=== PATIENT | female | born 1965 | race Native Hawaiian/Other Pacific Islander ===

== ENCOUNTER → 2017-10-28 | Outpatient (CLI) | payer MEDICARE, OTHER ==
[2017-10-28 17:26] LABS: Basophils # (A) 0.1 k/uL (0-0.2); Basophils % (A) 1 %; Eosinophils # (A) 0.2 k/uL (0-0.7); Eosinophils % (A) 2 %; HCT 32.6 % (34.0-46.0); HGB 10.4 gm/dL (11.4-16.0); Lymphocytes # (A) 3.1 k/uL (1.0-4.8); Lymphocytes % (A) 39 %; MCH 30.6 pg (25.0-35.0); MCV 95.7 fL (80.0-100.0); Mean Platelet Volume 8.5; Monocytes # (A) 0.4 k/uL (0-1.0); Monocytes % (A) 5 %; Neutrophils % (A) 50 %; Platelet Count 235 k/uL (150-450); RBC 3.41 m/uL (3.80-5.40); RDW 15.4 % (11.5-15.5); WBC 7.9 k/uL (3.8-10.6)
[2017-10-28 17:40] LABS: ALT 21 U/L (9-52); AST 21 U/L (14-36); C Reactive Protein 17.1 mg/L (<10.0)
[2017-10-28 20:59] LABS: Erythrocyte Sedimentation Rate 21 mm/hr (0-20)
== END | disposition home or self-care (01) ==
LOC: LABWHC1 16:58
PROVIDERS: ATTEND Internal Medicine Rheumatology
DX: M06.9 Rheumatoid arthritis, unspecified (principal)
CPT/HCPCS: 36415; 82565; 84450; 84460; 85025; 85652; 86140

== ENCOUNTER → 2018-02-09 | Outpatient (CLI) | payer MEDICARE, OTHER ==
[2018-02-09 17:08] LABS: Basophils # (A) 0.1 k/uL (0-0.2); Basophils % (A) 1 %; Eosinophils # (A) 0.1 k/uL (0-0.7); Eosinophils % (A) 1 %; HCT 31.1 % (34.0-46.0); HGB 10.3 gm/dL (11.4-16.0); Lymphocytes # (A) 3.5 k/uL (1.0-4.8); Lymphocytes % (A) 37 %; MCH 31.4 pg (25.0-35.0); MCHC 33.2 g/dL (31.0-37.0); MCV 94.6 fL (80.0-100.0); Monocytes # (A) 0.3 k/uL (0-1.0); Monocytes % (A) 4 %; Neutrophils # (A) 5.2 k/uL (1.3-7.7); Neutrophils % (A) 55 %; Platelet Count 317 k/uL (150-450); RBC 3.28 m/uL (3.80-5.40); RDW 13.8 % (11.5-15.5); WBC 9.5 k/uL (3.8-10.6)
[2018-02-09 17:13] LABS: ALT <6 U/L (9-52); AST 19 U/L (14-36); C Reactive Protein 7.1 mg/L (<10.0)
[2018-02-09 18:36] LABS: Erythrocyte Sedimentation Rate 15 mm/hr (0-20)
== END | disposition home or self-care (01) ==
LOC: LABWHC1 16:04
PROVIDERS: ATTEND Internal Medicine Rheumatology
DX: M06.9 Rheumatoid arthritis, unspecified (principal)
CPT/HCPCS: 36415; 82565; 84450; 84460; 85025; 85652; 86140

== ENCOUNTER 2018-06-06 10:51 | Emergency (ER) | payer MEDICARE, OTHER ==
[2018-06-06] MEDS ORDERED: methylPREDNISolone SOD SUCCI 125 MG/2 ML VIAL IV STA (11:02)
[2018-06-06] MEDS ORDERED: KETOROLAC 30 MG/ML 1 ML VIAL IVP STA (11:02)
[2018-06-06] MEDS ORDERED: FAMOTIDINE 20 MG/2 ML VIAL IV STA (11:02)
--- NOTE | 2018-06-06 11:05 | ED ---
General Adult HPI - General Chief complaint: Allergic Reaction Stated complaint: Bee sting-allergic Time Seen by Provider: 06/06/18 10:54 Source: patient, EMS, RN notes reviewed Mode of arrival: EMS Limitations: no limitations - History of Present Illness Initial comments: Patient 53-year-old female presented to the emergency room today by EMS, the chief complaint of bee stings. Patient states that she was working with some honeybees when she was stung multiple times. She states that she was stung to the face and the upper lip. States that she was also stung to the right and left arms. Patient admits to pain locally around the sting areas. Patient states she is not ALLERGIC to bee stings but is having increased headache. Doesn't some swelling locally around the stings. Denies any difficulty breathing or swallowing. Patient denies any other complaints. Patient denies any recent fever, chills, shortness of breath, chest pain, back pain, abdominal pain, nausea or vomiting, constipation or diarrhea, visual changes, or any other complaints. - Related Data Home Medications Medication Instructions Recorded Confirmed Hydrocodone/Acetaminophen [[place] 1 each PO Q6H PRN 02/15/14 06/06/18 10-325] Ergocalciferol [Vitamin D2] 50,000 unit PO Q7D 06/06/18 06/06/18 Leflunomide 20 mg PO DAILY 06/06/18 06/06/18 Tofacitinib Citrate [Xeljanz Xr] 11 mg PO DAILY 06/06/18 06/06/18 Previous Rx's Medication Instructions Recorded Ibuprofen [Motrin] 800 mg PO Q8HR PRN #20 tab 02/15/14 diphenhydrAMINE [Benadryl] 1 - 2 tab PO Q6HR PRN #30 capsule 06/06/18 predniSONE 50 mg PO DAILY #5 tab 06/06/18 Allergies Allergy/AdvReac Type Severity Reaction Status Date / Time No Known Allergies Allergy Verified 06/06/18 11:17 Review of Systems ROS Statement: Those systems with pertinent positive or pertinent negative responses have been documented in the HPI. ROS Other: All systems not noted in ROS Statement are negative. Past Medical History Past Medical History: Fibromyalgia, Rheumatoid Arthritis (RA) History of Any Multi-Drug Resistant Organisms: None Reported Past Surgical History: Joint Replacement, Orthopedic Surgery Past Psychological History: Anxiety, Depression Smoking Status: Never smoker Past Alcohol Use History: Occasional Past Drug Use History: Marijuana General Exam - General Exam Comments Initial Comments: General: The patient is awake and alert, in no distress, and does not appear acutely ill. Eye: Pupils are equal, round and reactive to light. Extra-ocular movements are intact. No nystagmus. There is normal conjunctiva bilaterally. No signs of icterus. Ears, nose, mouth and throat: There are moist mucous membranes and no oral lesions. No angioedema. No tongue swelling. No difficulty swallowing. Neck: The neck is supple, there is no tenderness or JVD. Cardiovascular: There is a regular rate and rhythm. No murmur, rub or gallop is appreciated. Respiratory: Lungs are clear to auscultation, respirations are non-labored, breath sounds are equal. No wheezes, stridor, rales, or rhonchi. Musculoskeletal: Normal ROM, no tenderness. Sensation intact. Pulses equal bilaterally 2+. Neurological: A&O x 3. CN II-XII intact, There are no obvious motor or sensory deficits. Coordination appears grossly intact. Speech is normal. Skin: Skin is warm and dry and no rashes. Mild swelling to locally around sting sites to the upper arm Psychiatric: Cooperative, appropriate mood & affect, normal judgment. Limitations: no limitations Course Vital Signs 06/06/18 10:55 Temperature 98.1 F Pulse Rate 107 H Respiratory 24 Rate Blood Pressure 142/96 O2 Sat by Pulse 97 Oximetry Medical Decision Making - Medical Decision Making Patient has been observed here in the emergency room. She's had no increasing reaction. She is feeling better. Patient was stung multiple times to the head and face area. Patient has no ALLERGY to bee stings that she knows of. There is no angioedema no difficulty breathing or swallowing. Patient will be continued on steroids and Benadryl. Signs and symptoms of concern and reason to return here to the emergency room discussed in detail with patient and friend at bedside. Patient states understanding and is in agreement at this time. Disposition Clinical Impression: Bee sting Disposition: HOME SELF-CARE Condition: Good Instructions: Insect Bite or Sting (ED) Additional Instructions: Please use medication as discussed. Please follow-up with family doctor in the next 2 days of symptoms have not improved. Please return to emergency room if the symptoms increase or worsen or for any other concerns. Prescriptions: diphenhydrAMINE [Benadryl] 1 - 2 tab PO Q6HR PRN #30 capsule PRN Reason: Allergic Reaction predniSONE 50 mg PO DAILY #5 tab Is patient prescribed a controlled substance at d/c from ED?: No Referrals: Jose Flores DO [Primary Care Provider] - 1-2 days Time of Disposition: 12:04
[2018-06-06] MEDS ORDERED: HYDROcodone/APAP 10-325MG 1 EACH TAB PO ONE (11:11)
[2018-06-06 12:06] VITALS: BP 113/77; PULSE 72; RESP 20; TEMP 99
== END 2018-06-06 12:33 | disposition home or self-care (01) ==
LOC: EC 10:51
DX: T63.441A Toxic effect of venom of bees, accidental (unintentional), initial encounter (principal); M06.9 Rheumatoid arthritis, unspecified; Z79.899 Other long term (current) drug therapy
CPT/HCPCS: 99283; 96374; 96375; J2930

== ENCOUNTER 2019-02-02 22:15 | Emergency (ER) | payer MEDICARE, OTHER ==
[2019-02-02 22:22] VITALS: RESP 18; TEMP 98.1
--- NOTE | 2019-02-02 22:52 | ED ---
General Adult HPI - General Chief complaint: Extremity Injury, Lower Stated complaint: Knee pain Time Seen by Provider: 02/02/19 22:33 Source: patient Mode of arrival: ambulatory Limitations: no limitations - History of Present Illness Initial comments: Mara is a pleasant 53-year-old female who presents to the emergency department today for evaluation of right-sided knee pain. Patient has very advanced rheumatoid arthritis and suffers from polyarthralgias chronically. Patient reports that last week she was vacuuming when she tripped over the cord. Patient was able to stand and has been ambulatory since that time but has been experiencing worsening pain in her right knee and charley horse-like sensations down her legs. Patient reports that she has been scheduled to have a knee replacement however due to being underweight she's not been a candidate for surgery. She is scheduled to have a bone density scan in the next couple of weeks and then follow up with Dr. Mel Hayes for consideration of the knee replacement. - Related Data Home Medications Medication Instructions Recorded Confirmed Hydrocodone/Acetaminophen [[place] 1 tab PO Q4H PRN 02/15/14 02/02/19 10-325] Ergocalciferol [Vitamin D2] 50,000 unit PO FR 06/06/18 02/02/19 Leflunomide 20 mg PO DAILY 06/06/18 02/02/19 Tofacitinib Citrate [Xeljanz Xr] 11 mg PO DAILY 06/06/18 02/02/19 Previous Rx's Medication Instructions Recorded Ibuprofen [Motrin] 800 mg PO Q8HR PRN #20 tab 02/15/14 predniSONE [Deltasone] 40 mg PO DAILY 5 Days #10 tablet 02/02/19 Allergies Allergy/AdvReac Type Severity Reaction Status Date / Time No Known Allergies Allergy Verified 02/02/19 22:28 Review of Systems ROS Statement: Those systems with pertinent positive or pertinent negative responses have been documented in the HPI. ROS Other: All systems not noted in ROS Statement are negative. Past Medical History Past Medical History: Fibromyalgia, Rheumatoid Arthritis (RA) History of Any Multi-Drug Resistant Organisms: None Reported Past Surgical History: Joint Replacement, Orthopedic Surgery Past Psychological History: Anxiety, Depression Smoking Status: Never smoker Past Alcohol Use History: Occasional Past Drug Use History: Marijuana General Exam - General Exam Comments Initial Comments: Physical Exam GENERAL: Chronically ill-appearing female, appears much older than stated age HENT: Normocephalic, Atraumatic. EYES: PERRL, EOMI PULMONARY: Unlabored respirations. No audible rales rhonchi or wheezing was noted. CARDIOVASCULAR: There is a regular rate and rhythm without any murmurs gallops or rubs. ABDOMEN: Soft and nontender with normal bowel sounds. SKIN: Skin is clear with no lesions or rashes and otherwise unremarkable. : Deferred NEUROLOGIC: Patient is alert and oriented x3. Moving all extremities spontaneously MUSCULOSKELETAL: Joint changes of hands and knees consistent with rheumatoid arthritis clicking in the right knee effusion No lower extremity edema PSYCHIATRIC: Normal psychiatric evaluation. Limitations: no limitations Limitations: no limitations Course Vital Signs 02/02/19 22:18 Temperature 98.1 F Pulse Rate 68 Respiratory 18 Rate Blood Pressure 108/70 O2 Sat by Pulse 98 Oximetry Medical Decision Making - Medical Decision Making The patient was seen and evaluated, history obtained from patient and daughter patient with rheumatoid arthritis with worsening pain in her right knee Patient with glenn horse like pain, concern for electrolyte abnormality as the patient has poor PO intake Labs with chronic anemia No electrolyte abnormality noted Xray with chronic changes, no acute injury Patient with minimal improvement after morphine and toradol, requesting steroids as that have helped in the past PO prednisone and prescription for 5 days of PO prednisone given Return parameters discussed Patient discharged home in stable condition - Lab Data Result diagrams: 02/02/19 23:00 02/02/19 23:00 Lab Results 02/02/19 02/02/19 Range/Units 23:00 23:00 WBC 7.6 (3.8-10.6) k/uL RBC 3.25 L (3.80-5.40) m/uL Hgb 10.1 L (11.4-16.0) gm/dL Hct 30.9 L (34.0-46.0) % MCV 95.0 (80.0-100.0) fL MCH 31.1 (25.0-35.0) pg MCHC 32.7 (31.0-37.0) g/dL RDW 13.5 (11.5-15.5) % Plt Count 476 H (150-450) k/uL Neutrophils % 40 % Lymphocytes % 49 % Monocytes % 3 % Eosinophils % 3 % Basophils % 1 % Neutrophils # 3.1 (1.3-7.7) k/uL Lymphocytes # 3.7 (1.0-4.8) k/uL Monocytes # 0.2 (0-1.0) k/uL Eosinophils # 0.2 (0-0.7) k/uL Basophils # 0.1 (0-0.2) k/uL Differential Comment Manual Slide Review Performed Sodium 138 (137-145) mmol/L Potassium 4.3 (3.5-5.1) mmol/L Chloride 108 H (98-107) mmol/L Carbon Dioxide 20 L (22-30) mmol/L Anion Gap 10 mmol/L BUN 9 (7-17) mg/dL Creatinine 0.52 (0.52-1.04) mg/dL Est GFR (CKD-EPI)AfAm >90 (>60 ml/min/1.73 sqM) Est GFR (CKD-EPI)NonAf >90 (>60 ml/min/1.73 sqM) Glucose 88 (74-99) mg/dL Calcium 10.1 (8.4-10.2) mg/dL Magnesium 1.9 (1.6-2.3) mg/dL Total Bilirubin 0.2 (0.2-1.3) mg/dL AST 21 (14-36) U/L ALT 17 (9-52) U/L Alkaline Phosphatase 87 (38-126) U/L Creatine Kinase 68 (30-135) U/L Total Protein 7.8 (6.3-8.2) g/dL Albumin 4.5 (3.5-5.0) g/dL Disposition Clinical Impression: Arthritis Disposition: HOME SELF-CARE Instructions (If sedation given, give patient instructions): Osteoarthritis (DC) Prescriptions: predniSONE [Deltasone] 40 mg PO DAILY 5 Days #10 tablet Is patient prescribed a controlled substance at d/c from ED?: No Referrals: Jose Flores DO [Primary Care Provider] - 1-2 days
[2019-02-02] MEDS ORDERED: MORPHINE SULFATE 4 MG/ML SYRINGE IVP STA (22:53)
[2019-02-02] MEDS ORDERED: SODIUM CHLORIDE 0.9% 1,000 ML IV ONE (22:53)
[2019-02-02] MEDS ORDERED: KETOROLAC 30 MG/ML 1 ML VIAL IVP ONE (22:53)
[2019-02-02 23:19] LABS: Basophils # (A) 0.1 k/uL (0-0.2); Basophils % (A) 1 %; Eosinophils # (A) 0.2 k/uL (0-0.7); Eosinophils % (A) 3 %; HCT 30.9 % (34.0-46.0); HGB 10.1 gm/dL (11.4-16.0); Lymphocytes # (A) 3.7 k/uL (1.0-4.8); Lymphocytes % (A) 49 %; MCH 31.1 pg (25.0-35.0); MCHC 32.7 g/dL (31.0-37.0); Mean Platelet Volume 7.4; Monocytes # (A) 0.2 k/uL (0-1.0); Monocytes % (A) 3 %; Neutrophils # (A) 3.1 k/uL (1.3-7.7); Neutrophils % (A) 40 %; Platelet Count 476 k/uL (150-450); RBC 3.25 m/uL (3.80-5.40); RDW 13.5 % (11.5-15.5); WBC 7.6 k/uL (3.8-10.6)
--- NOTE | 2019-02-02 23:25 | XR ---
History: ITS.REASON XR Reason: Pain, fall hx Rheumatoid Exam: XR RIGHT KNEE 2 views Comparison: None available FINDINGS: No evidence of acute fracture or dislocation. Moderate joint effusion. Osteoarthrosis with lateral greater than medial appearing compartment narrowing and lateral compartment sclerosis and marginal osteophyte formation. Patellofemoral compartment joint space narrowing. Appearance of lateral knee soft tissue swelling suggested. IMPRESSION: No evidence of acute fracture or dislocation. Moderate joint effusion. Osteoarthrosis with lateral greater than medial appearing compartment narrowing and lateral compartment sclerosis and marginal osteophyte formation. Patellofemoral compartment joint space narrowing. Appearance of lateral knee soft tissue swelling suggested.
[2019-02-02 23:30] LABS: ALT 17 U/L (9-52); AST 21 U/L (14-36); Albumin 4.5 g/dL (3.5-5.0); Alkaline Phosphatase 87 U/L (38-126); Anion Gap 10 mmol/L; Blood Urea Nitrogen 9 mg/dL (7-17); Calcium 10.1 mg/dL (8.4-10.2); Carbon Dioxide 20 mmol/L (22-30); Chloride 108 mmol/L (98-107); Creatine Kinase 68 U/L (30-135); Glucose 88 mg/dL (74-99); Magnesium 1.9 mg/dL (1.6-2.3); Potassium 4.3 mmol/L (3.5-5.1); Sodium 138 mmol/L (137-145); Total Bilirubin 0.2 mg/dL (0.2-1.3); Total Protein 7.8 g/dL (6.3-8.2)
[2019-02-02] MEDS ORDERED: predniSONE 20 MG TAB PO STA (23:52)
[2019-02-03 00:22] VITALS: BP 126/75; PULSE 88
== END 2019-02-03 00:21 | disposition home or self-care (01) ==
LOC: EC 22:15
DX: M06.9 Rheumatoid arthritis, unspecified (principal); D64.9 Anemia, unspecified; Z96.89 Presence of other specified functional implants; Z79.899 Other long term (current) drug therapy; W22.8XXA Striking against or struck by other objects, initial encounter; Y93.E3 Activity, vacuuming
CPT/HCPCS: 36415; 80053; 82550; 83735; 85025; 73560; 99284; 96374; 96375; 96361; J2270; J1885; J7512

== ENCOUNTER → 2019-03-07 | Outpatient (CLI) | payer MEDICARE, OTHER ==
[2019-03-07 16:45] LABS: Basophils # (A) 0.1 k/uL (0-0.2); Basophils % (A) 1 %; Eosinophils # (A) 0.2 k/uL (0-0.7); Eosinophils % (A) 2 %; HGB 10.6 gm/dL (11.4-16.0); Lymphocytes # (A) 2.4 k/uL (1.0-4.8); Lymphocytes % (A) 26 %; MCH 30.1 pg (25.0-35.0); MCHC 32.1 g/dL (31.0-37.0); MCV 93.6 fL (80.0-100.0); Mean Platelet Volume 7.6; Monocytes # (A) 0.5 k/uL (0-1.0); Monocytes % (A) 6 %; Neutrophils # (A) 5.8 k/uL (1.3-7.7); Neutrophils % (A) 63 %; Platelet Count 520 k/uL (150-450); RBC 3.52 m/uL (3.80-5.40); RDW 14.4 % (11.5-15.5); WBC 9.2 k/uL (3.8-10.6)
[2019-03-07 20:51] LABS: Erythrocyte Sedimentation Rate 58 mm/hr (0-20)
[2019-03-07 23:10] LABS: C Reactive Protein 4.4 mg/dL (0.0-0.8)
== END | disposition home or self-care (01) ==
LOC: LABWHC1 15:11
PROVIDERS: ATTEND Internal Medicine Rheumatology
DX: M06.9 Rheumatoid arthritis, unspecified (principal)
CPT/HCPCS: 36415; 82565; 84450; 84460; 85025; 85652; 86140

== ENCOUNTER → 2019-07-11 | Outpatient (CLI) | payer MEDICARE, OTHER | END | disposition home or self-care (01) | LOC: LABPAT 13:52 | PROVIDERS: ATTEND Orthopaedic Surgery | DX: Z01.812 Encounter for preprocedural laboratory examination (principal) | CPT/HCPCS: 87070 ==

== ENCOUNTER 2019-07-12 15:46 | Emergency (ER) | payer MEDICARE, OTHER ==
[2019-07-12 16:04] VITALS: TEMP 98.5
[2019-07-12] MEDS ORDERED: MORPHINE SULFATE 4 MG/ML SYRINGE IV STA ×2 (16:44→18:25)
[2019-07-12] MEDS ORDERED: SODIUM CHLORIDE 0.9% 500 ML 500 ML IV STA (16:44)
[2019-07-12 17:28] LABS: Partial Thromboplastin Time 25.5 sec (22.0-30.0); Prothrombin Time 10.3 sec (9.0-12.0)
--- NOTE | 2019-07-12 17:28 | XR ---
EXAMINATION TYPE: XR chest 2V DATE OF EXAM: 07/12/2019 COMPARISON: NONE HISTORY: Chest pain TECHNIQUE: Frontal and lateral views of the chest are obtained. FINDINGS: Heart and mediastinum are normal. Lungs are clear. Diaphragm is normal. There are chest le ads. Bony thorax is intact. IMPRESSION: No cardiopulmonary disease. Moderate arthritic change noted in the shoulder joints.
[2019-07-12 17:30] LABS: ALT 12 U/L (9-52); AST 20 U/L (14-36); African American GFR (CKD) >90 (>60 ml/min/1.73 sqM); Albumin 4.2 g/dL (3.5-5.0); Alkaline Phosphatase 101 U/L (38-126); Anion Gap 12 mmol/L; Blood Urea Nitrogen 9 mg/dL (7-17); Calcium 10.2 mg/dL (8.4-10.2); Carbon Dioxide 23 mmol/L (22-30); Chloride 107 mmol/L (98-107); Glucose 107 mg/dL (74-99); Magnesium 1.7 mg/dL (1.6-2.3); Potassium 3.9 mmol/L (3.5-5.1); Sodium 142 mmol/L (137-145); Total Bilirubin 0.4 mg/dL (0.2-1.3)
[2019-07-12 17:34] LABS: D-Dimer 4.25 mg/L FEU (<0.60)
[2019-07-12 17:41] LABS: Basophils # (A) 0.1 k/uL (0-0.2); Basophils % (A) 1 %; Eosinophils # (A) 0.2 k/uL (0-0.7); Eosinophils % (A) 2 %; HCT 33.8 % (34.0-46.0); Lymphocytes # (A) 1.6 k/uL (1.0-4.8); Lymphocytes % (A) 14 %; MCH 30.8 pg (25.0-35.0); MCHC 32.6 g/dL (31.0-37.0); MCV 94.6 fL (80.0-100.0); Mean Platelet Volume 6.1; Monocytes # (A) 0.6 k/uL (0-1.0); Monocytes % (A) 6 %; Neutrophils # (A) 8.6 k/uL (1.3-7.7); Neutrophils % (A) 75 %; Platelet Count 627 k/uL (150-450); RBC 3.57 m/uL (3.80-5.40); RDW 13.5 % (11.5-15.5); WBC 11.4 k/uL (3.8-10.6)
--- NOTE | 2019-07-12 18:26 | ED ---
General Adult HPI - General Chief complaint: Extremity Problem,Nontraumatic Stated complaint: knee pain Time Seen by Provider: 07/12/19 16:24 Source: patient, RN notes reviewed, old records reviewed Mode of arrival: ambulatory Limitations: no limitations - History of Present Illness Initial comments: 54-year-old female patient past history significant for: Arthritis, chronic knee pain since ED for exacerbation of right knee pain. Patient reports that she is scheduled to have right knee replacement conducted on Tuesday by Dr. Shi. Patient reports that she has stopped taking her anti rheumatologic medications, anti-inflammatories, steroids and preparation of the surgery. Patient reports that she is having significant pain in the right knee has not been able to ambulate at all discomfort. Patient does take [place] at home which has only offered limited relief. Patient has a secondary complaint of some left posterior back pain which is pleuritic in nature, this has been ongoing for 1 week. Patient denies any significant shortness of breath this time. Patient denies any chest pain anteriorly. Patient denies any previous history of VTE. Denies any other complaints at this time. Systemic: Pt denies fatigue, fever/chills, rash. Pt denies weakness, night sweats, weight loss. Neuro: Pt denies headache, visual disturbances, syncope or pre-syncope. HEENT: Pt denies ocular discharge or irritation, otalgia, rhinorrhea, pharyngitis or notable lymphadenopathy. Cardiopulmonary: Pt denies chest pain, SOB, heart palpitations, dyspnea on exertion. Abdominal/GI: Pt denies abdominal pain, n/v/d. : Pt denies dysuria, burning w/ urination, frequency/urgency. Denies new onset urinary or bowel incontinence. MSK: Pt denies myalgia, loss of strength or function in extremities. Neuro: Pt denies new onset weakness, paresthesias. - Related Data Home Medications Medication Instructions Recorded Confirmed Hydrocodone/Acetaminophen [[place] 1 tab PO Q4H PRN 02/15/14 07/10/19 10-325] Previous Rx's Medication Instructions Recorded Ibuprofen [Motrin] 800 mg PO Q8HR PRN #20 tab 02/15/14 Allergies Allergy/AdvReac Type Severity Reaction Status Date / Time No Known Allergies Allergy Verified 07/12/19 16:00 Review of Systems ROS Statement: Those systems with pertinent positive or pertinent negative responses have been documented in the HPI. ROS Other: All systems not noted in ROS Statement are negative. Past Medical History Past Medical History: Fibromyalgia, Rheumatoid Arthritis (RA) History of Any Multi-Drug Resistant Organisms: None Reported Past Surgical History: Joint Replacement, Orthopedic Surgery Past Psychological History: Anxiety, Depression Smoking Status: Never smoker Past Alcohol Use History: Occasional Past Drug Use History: Marijuana General Exam - General Exam Comments Initial Comments: Constitutional: NAD, AOX3, Pt has pleasant affect. HEENT: NC/AT, trachea midline, neck supple, no lymphadenopathy. Posterior pharynx non erythematous, without exudates. External ears appear normal, without discharge. Mucous membranes moist. Eyes PERRLA, EOM intact. There is no scleral icterus. No pallor noted. Cardiopulmonary: RRR, no murmurs, rubs or gallops, no JVD noted. Lungs CTAB in anterior and posterior [place]. No peripheral edema. Abdominal exam: Abdomen soft and non-distended. Abdomen non-tender to palpation in all 4 quadrants. Bowel sounds active in LLQ. No hepatosplenomegaly. No ecchymosis Neuro: CN II-XII grossly intact. No nuchal rigidity. No raccon eyes, no tobin sign, no hemotympanum. No cervical spinal tenderness. MSK: Right knee nonerythematous, active range of motion intact is the pulses intact and equal. No posterior calf tenderness bilaterally, homans sign negative bilaterally. Posterior tibialis and radial pulse +2 bilaterally. Sensation intact in upper and lower extremities. Full active ROM in upper and lower extremities, 5/5 stregnth. Limitations: no limitations Course Vital Signs 07/12/19 07/12/19 07/12/19 15:58 18:00 18:30 Temperature 98.5 F Pulse Rate 91 81 80 Respiratory 16 16 23 Rate Blood Pressure 100/66 115/89 108/68 O2 Sat by Pulse 98 98 100 Oximetry 07/12/19 07/12/19 19:00 19:30 Temperature Pulse Rate 80 74 Respiratory 20 15 Rate Blood Pressure 108/68 103/78 O2 Sat by Pulse 98 99 Oximetry Medical Decision Making - Medical Decision Making 54-year-old female patient past history significant for: Arthritis, chronic knee pain since ED for exacerbation of right knee pain. Patient reports that she is scheduled to have right knee replacement conducted on Tuesday by Dr. Shi. Patient reports that she has stopped taking her anti rheumatologic medications, anti-inflammatories, steroids and preparation of the surgery. Patient reports that she is having significant pain in the right knee has not been able to ambulate at all discomfort. Patient does take [place] at home which has only offered limited relief. Patient has a secondary complaint of some left posterior back pain which is pleuritic in nature, this has been ongoing for 1 week. Patient denies any significant shortness of breath this time. Patient denies any chest pain anteriorly. Patient denies any previous history of VTE. Denies any other complaints at this time. Patient vital signs stable, afebrile. Physical exam displayed: Right knee nonerythematous, active range of motion intact is the pulses intact and equal. No posterior calf tenderness bilaterally, homans sign negative bilaterally. Posterior tibialis and radial pulse +2 bilaterally. Sensation intact in upper and lower extremities. Full active ROM in upper and lower extremities, 5/5 stregnth. Laboratory investigations revealed negative troponin. D-dimer elevated at 4.25. Otherwise labs noncompressive. EKG not concerning for acute ischemia. Chest x-ray negative. CTA negative for pulmonary embolism. Patient pain well-controlled ED. Patient was discharged, follow up with primary care provider and orthopedic consult. Return to ER condition worsens. Case discussed with Dr. Haddad. - Lab Data Result diagrams: 07/12/19 16:50 07/12/19 16:50 Lab Results 07/12/19 07/12/19 07/12/19 Range/Units 16:50 16:50 16:50 WBC 11.4 H (3.8-10.6) k/uL RBC 3.57 L (3.80-5.40) m/uL Hgb 11.0 L (11.4-16.0) gm/dL Hct 33.8 L (34.0-46.0) % MCV 94.6 (80.0-100.0) fL MCH 30.8 (25.0-35.0) pg MCHC 32.6 (31.0-37.0) g/dL RDW 13.5 (11.5-15.5) % Plt Count 627 H (150-450) k/uL Neutrophils % 75 % Lymphocytes % 14 % Monocytes % 6 % Eosinophils % 2 % Basophils % 1 % Neutrophils # 8.6 H (1.3-7.7) k/uL Lymphocytes # 1.6 (1.0-4.8) k/uL Monocytes # 0.6 (0-1.0) k/uL Eosinophils # 0.2 (0-0.7) k/uL Basophils # 0.1 (0-0.2) k/uL PT 10.3 (9.0-12.0) sec INR 1.0 (<1.2) APTT 25.5 (22.0-30.0) sec D-Dimer 4.25 H (<0.60) mg/L FEU Sodium 142 (137-145) mmol/L Potassium 3.9 (3.5-5.1) mmol/L Chloride 107 (98-107) mmol/L Carbon Dioxide 23 (22-30) mmol/L Anion Gap 12 mmol/L BUN 9 (7-17) mg/dL Creatinine 0.54 (0.52-1.04) mg/dL Est GFR (CKD-EPI)AfAm >90 (>60 ml/min/1.73 sqM) Est GFR (CKD-EPI)NonAf >90 (>60 ml/min/1.73 sqM) Glucose 107 H (74-99) mg/dL Calcium 10.2 (8.4-10.2) mg/dL Magnesium 1.7 (1.6-2.3) mg/dL Total Bilirubin 0.4 (0.2-1.3) mg/dL AST 20 (14-36) U/L ALT 12 (9-52) U/L Alkaline Phosphatase 101 (38-126) U/L Troponin I (0.000-0.034) ng/mL Total Protein 8.0 (6.3-8.2) g/dL Albumin 4.2 (3.5-5.0) g/dL 07/12/19 Range/Units 16:50 WBC (3.8-10.6) k/uL RBC (3.80-5.40) m/uL Hgb (11.4-16.0) gm/dL Hct (34.0-46.0) % MCV (80.0-100.0) fL MCH (25.0-35.0) pg MCHC (31.0-37.0) g/dL RDW (11.5-15.5) % Plt Count (150-450) k/uL Neutrophils % % Lymphocytes % % Monocytes % % Eosinophils % % Basophils % % Neutrophils # (1.3-7.7) k/uL Lymphocytes # (1.0-4.8) k/uL Monocytes # (0-1.0) k/uL Eosinophils # (0-0.7) k/uL Basophils # (0-0.2) k/uL PT (9.0-12.0) sec INR (<1.2) APTT (22.0-30.0) sec D-Dimer (<0.60) mg/L FEU Sodium (137-145) mmol/L Potassium (3.5-5.1) mmol/L Chloride (98-107) mmol/L Carbon Dioxide (22-30) mmol/L Anion Gap mmol/L BUN (7-17) mg/dL Creatinine (0.52-1.04) mg/dL Est GFR (CKD-EPI)AfAm (>60 ml/min/1.73 sqM) Est GFR (CKD-EPI)NonAf (>60 ml/min/1.73 sqM) Glucose (74-99) mg/dL Calcium (8.4-10.2) mg/dL Magnesium (1.6-2.3) mg/dL Total Bilirubin (0.2-1.3) mg/dL AST (14-36) U/L ALT (9-52) U/L Alkaline Phosphatase (38-126) U/L Troponin I <0.012 (0.000-0.034) ng/mL Total Protein (6.3-8.2) g/dL Albumin (3.5-5.0) g/dL - EKG Data -: EKG Interpreted by Me EKG Comments: ventricular rate 82, when necessary for 142, QRS 78, QT/QTc to get a successful 15. Normal sinus rhythm, normal EKG, no concern for acute ischemia. Disposition Clinical Impression: Knee pain Disposition: HOME SELF-CARE Condition: Stable Instructions (If sedation given, give patient instructions): Knee Pain (ED) Additional Instructions: Patient to adhere to previously discussed treatment plan and will take medication(s) as directed. Patient to follow up with PCP in 1-2 days. Patient to return to ED if symptoms do not improve. follow-up with primary care provider and orthopedic consult tomorrow. Return to ER if condition worsens. Is patient prescribed a controlled substance at d/c from ED?: No Referrals: Jose Flores DO [Primary Care Provider] - 1-2 days
--- NOTE | 2019-07-12 19:30 | CT ---
EXAMINATION TYPE: CT chest angio for PE DATE OF EXAM: 07/12/2019 COMPARISON: None HISTORY: Pleuritic chest pain, elevated d dimer. CT DLP: 279.6 mGycm Automated exposure control for dose reduction was used. CONTRAST: CT Chest for pulmonary embolism performed with with IV Contrast, patient injected with 80 mL of Isovu e 370. FINDINGS: There are 3-D post processed images. There is no pleural effusion. The lungs are clear of consolidation. Heart size is normal. There is no pericardial effusion. There is no evidence of a pulmonary mass. There is no mediastinal adenopathy. There are no hilar masses. Thoracic aorta measures 3.1 cm. There is no aneurysm or dissection. There is normal contrast opacification of the pulmonary arteries. There are no filling defects. The b yanci thorax is intact. Upper abdominal soft tissues are unremarkable. IMPRESSION: Negative exam. No evidence of pulmonary embolism.
[2019-07-12 19:33] VITALS: BP 103/78; PULSE 74; RESP 15
== END 2019-07-12 21:00 | disposition home or self-care (01) ==
LOC: EC 15:46
DX: M25.561 Pain in right knee (principal); G89.29 Other chronic pain; M06.9 Rheumatoid arthritis, unspecified
CPT/HCPCS: 36415; 93005; 85379; 80053; 83735; 84484; 85025; 85610; 85730; 71046; 71275; 99284; 96374; 96376; J2270; Q9967

== ENCOUNTER 2019-07-16 08:32 | Inpatient (IN) | payer MEDICARE, OTHER ==
--- NOTE | 2019-07-15 17:47 | HP ---
HISTORY AND PHYSICAL REASON FOR ADMISSION: Surgery scheduled for 07/16/2019 Mara Moralez is a 54-year-old patient seen with symptomatic right knee osteoarthritis. We discussed treatment options. She elected to proceed with right total knee arthroplasty. Consent was obtained. Medical clearance was provided by Dr. Jose Flores. PAST MEDICAL HISTORY: Rheumatoid arthritis, hypertension. PAST SURGICAL HISTORY: Left total hip arthroplasty. DAILY MEDICATIONS: Ibuprofen, [place], Xeljanz. ALLERGIES: None. SOCIAL HISTORY: She denies tobacco use. PHYSICAL EXAMINATION: Evaluation of the right knee: Range of motion is -7/8-110. She is tender along the lateral joint line. She has crepitus along the lateral and patellofemoral compartments. Ligaments are stable. Hip rotation is without significant pain, although somewhat limited. Distal neurovascular exam is intact. RADIOGRAPHS: Radiographs of the right knee reveal severe lateral compartment osteoarthritis. IMPRESSION: 1. Right knee osteoarthritis. 2. Rheumatoid arthritis. PLAN: Right total knee arthroplasty. Surgery scheduled for 07/16/2019. MMODL / IJN: [id number] /
[~2019-07-16 08:32] MED LIST: LIDOCAINE 1% 20 ML VIAL (10MG/ML) FOR IV START INTRADERMA PRN; MIDAZOLAM 2 MG/2 ML VIAL IV PRN; ONDANSETRON 4 MG/2 ML VIAL IVP PRN; ROPIVACAINE 246.25 MG, EPINEPHrine 0.5 MG, KETOROLAC 30 MG, cloNIDine HCL/PF 80 MCG, WA... MISCELLANE ONE; TRANEXAMIC ACID 1,000 MG in SODIUM CHLORIDE 0.9% 100 ML IVPB ONE
[2019-07-16 09:17] LABS: Glucose,Whole Blood 91 mg/dL (75-99)
[2019-07-16] MEDS: LACTATED RINGERS 1,000 ML IV SCH ×3 (09:18→17:33)
[2019-07-16] MEDS: ACETAMINOPHEN TAB 500 MG TAB PO ONE ×2 (09:30→17:32)
[2019-07-16] MEDS: MELOXICAM 7.5 MG TAB PO ONE ×2 (09:30→17:32)
[2019-07-16] MEDS: ONDANSETRON 4 MG/2 ML VIAL IVP ONE ×2 (09:31→17:32)
[2019-07-16] MEDS: fentaNYL (PF) 50 MCG/ML 2 ML AMP IVP PRN ×2 (09:41→09:56)
[2019-07-16] MEDS ORDERED: PROPOFOL 10 MG/ML 20 ML VIAL IV ONE (10:27)
[2019-07-16] MEDS ORDERED: ROPIVACAINE 0.2%-NS ON-Q PUMP 1,090 MG, EMPTY PAIN BALL 1 EACH MISCELLANE PRN (10:27)
[2019-07-16] MEDS ORDERED: SODIUM CHLORIDE 0.9% 100 ML BAG ONE (10:27)
[2019-07-16] MEDS ORDERED: MIDAZOLAM 2 MG/2 ML VIAL ONE (10:27)
[2019-07-16] MEDS ORDERED: fentaNYL (PF) 50 MCG/ML 2 ML AMP ONE (10:27)
[2019-07-16] MEDS ORDERED: TRANEXAMIC ACID 1,000 MG/10 ML VIAL ONE (10:27)
[2019-07-16] MEDS ORDERED: ceFAZolin 3,000 MG in SODIUM CHLORIDE 0.9% IRRIGATIO 3,000 ML IRRIGATION ONE (11:00)
--- NOTE | 2019-07-16 11:22 | P.ANPRN ---
Procedure Note - Anesthesia - Nerve Block Performed Right Adductor Canal Infusion Date of Procedure: 07/16/19 Procedure Start Time: 09:40 Procedure Stop Time: 09:50 Location of Patient Procedure: PreOp Indication: Acute Post-Operative Pain, Requested by Surgeon Specifically requested for management of pain by DrKaty: Bean Shi Sedation Type: Sedate with meaningful contact maintained Preparation: Sterile Prep Position: Supine Catheter Depth at Skin (cm): 5 Catheter: Indwelling Needle Types: [place]ajunk Needle Gauge: 18 Ultrasound used to visualize needle placement: Yes Ultrasound used to observe medication spread: Yes Injectate: 0.5% Ropivacaine (see comment for volume) (20 cc) Blood Aspirated: No Pain Paresthesia on Injection Noted: No Resistance on Injection: Normal Image Stored and Saved: Yes Events: Uneventful and Well Tolerated
[2019-07-16] MEDS ORDERED: LACTATED RINGERS 1,000 ML IV ONE ×2 (12:15→14:16)
[2019-07-16] MEDS ORDERED: HYDROcodone/APAP 5-325MG 1 EACH TAB PO PRN (12:27)
[2019-07-16] MEDS ORDERED: ONDANSETRON 4 MG/2 ML VIAL IVP PRN (12:27)
[2019-07-16] MEDS ORDERED: NALOXONE 0.4 MG/ML 1 ML VIAL IV PRN (12:27)
[2019-07-16] MEDS ORDERED: HYDROmorphone 0.5 MG/0.5 ML SYRINGE IVP PRN ×2 (12:27)
--- NOTE | 2019-07-16 12:27 | P.OP ---
Date of Procedure: 07/16/19 Preoperative Diagnosis: Right knee osteoarthritis Postoperative Diagnosis: Right knee osteoarthritis Procedure(s) Performed: Right total knee arthroplasty Implants: 1. Depuy attune size 3 narrow cruciate retaining cemented femur 2. Depuy attune size 3 fixed bearing cemented tibial baseplate 3. Depuy attune size 3 fixed bearing cruciate retaining 5 mm polyethylene tibial insert 4. Depuy attune 35 mm all polyethylene cemented patella Anesthesia: regional (Adductor canal catheter), local, spinal Surgeon: Bean Shi Bedspread Inspector #1: Daniel Chen Estimated Blood Loss (ml): 30 Pathology: other (Bone) Condition: stable Disposition: PACU Indications for Procedure: 54-year-old patient seen with symptomatic right knee osteoarthritis. After treatment options were discussed, she elected to proceed with total knee a rthroplasty. Operative Findings: see description of procedure Description of Procedure: Patient was taken to the operative suite after having an adductor canal catheter placed by the department of anesthesia for postoperative pain management. Patient underwent a spinal anesthetic by the department of anesthesia. Patient was given preoperative IV intake antibiotics and TXA. A well-padded tourniquet was placed about the right lower extremity. The lower extremity was then prepped and draped in the normal sterile orthopedic fashion. The extremity was elevated, a tourniquet was insufflated to 300. A standard anterior incision was made sharply through skin. Dissection was taken down through the subcutaneous soft tissues down to the extensor mechanism. A medial arthrotomy was performed, patella was everted and knee was flexed. There was advanced osteoarthritis noted. I introduced my distal intramedullary femoral drill. I then introduced the distal femoral cutting jig. Magdy HEADLEY secured the cutting jig with 2 pins. I held retractors in position while Magdy HEADLEY performed the distal femoral resection through the guide area we now removed her distal femoral cutting guide. We now placed our 4-in-1 femoral cutting block and positioned and it was secured with 2 pins by Magdy HEADLEY while I held the block in position. The distal femoral finishing was now completed. A proximal tibial cutting guide was positioned. I held the guide in the appropriate position with both hands well Magdy HEADLEY inserted stabilizing pins into the guide. Proximal tibial cut was made. We now placed a trial femoral component into position, along with an appropriate size tibial tray and insert. We now took the knee through range of motion and had full extension good flexion and good overall soft tissue balance noted. The patella was everted and stabilized with 2 towel clips held by Magdy HEADLEY while I performed a flush with patellar quad tendon utilizing a fresh sawblade. We templated the patella, appropriate drill holes were made. An appropriate trial patella was positioned, knee was taken through full range of motion with the patella tracking very nicely. The trial patella was removed. Drill holes were made through the femoral component. All trial components were removed after marking off the appropriate rotation of the tibia. Retractors were now positioned along the proximal tibia. An appropriate keel punch was made with the appropriate size tibial guide by myself on Magdy HEADLEY assisted by holding retractors. At this point appropriate size implants were chosen and opened. The joint was irrigated copiously with pulse lavage mechanical irrigation. The posterior capsule was infiltrated with local analgesic. The wound was irrigated with pulse lavage mechanical irrigation. We mixed antibiotic methylmethacrylate. We placed the knee into flexion. We placed multiple retractors assisted by Magdy HEADLEY to expose the proximal tibia. Once the methyl methacrylate was ready, the tibial component was cemented into place removing any excess methylmethacrylate form by both myself and Magdy HEADLEY. The femoral component was cemented into place removing the removing any excess methylmethacrylate performed by both myself and Magdy HEADLEY. We then inserted the appropriate size polyethylene tibial insert. We made sure that it was locked into position. We took the knee into full extension, and then back in a flexion making sure we had removed any excess methylmethacrylate. The patellar component was then cemented down and secured with clamp. Excess methylmethacrylate removed. We kept the knee in full extension, patellar clamp in position until methylmethacrylate had hardened. Once it had hardened the patellar clamp was removed. The knee was taken through full range of motion. The patella tracked nicely. There was good soft tissue balancing. The tourniquet was now released. Additional hemostasis was achieved via electrocautery. A second gram of TXA was given. The wound again was irrigated with pulse lavage mechanical irrigation. The superficial soft tissues were infiltrated local analgesic. The extensor mechanism was repaired with Vicryl. We checked the repair with range of motion and it was stable. The skin was very thin with essentially no subcutaneous soft tissues so the skin repair was performed utilizing multiple interrupted nylon sutures. Sterile dressings were applied followed by loose web roll and Luis bandage. The patient was transferred to a bed, and taken to recovery in stable and satisfactory condition. Magdy HEADLEY assisted with this complex procedure.
[2019-07-16] MEDS: HYDROmorphone 0.5 MG/0.5 ML SYRINGE IVP PRN ×2 (12:33→12:40)
[2019-07-16] MEDS ORDERED: KETOROLAC 30 MG/ML 1 ML VIAL IVP ONE (12:33)
--- NOTE | 2019-07-16 13:00 | XR ---
EXAMINATION TYPE: XR knee limited RT DATE OF EXAM: 07/16/2019 CLINICAL HISTORY: Right knee pain and arthritis status post total knee replacement. TECHNIQUE: Portable AP and crosstable lateral views of the right knee are obtained immediately posto peratively. COMPARISON: None FINDINGS: Metallic hardware from total right knee arthroplasty is seen and appears satisfactory in a lignment and position. There is evidence of recent surgery with diffuse subcutaneous gas and soft ti ssue swelling noted. IMPRESSION: METALLIC HARDWARE FROM TOTAL RIGHT KNEE ARTHROPLASTY IS SATISFACTORY IN ALIGNMENT.
[2019-07-16] MEDS ORDERED: diphenhydrAMINE 50 MG/ML 1 ML VIAL IVP ONE (13:25)
[2019-07-16] MEDS: HYDROcodone/APAP 5-325MG 1 EACH TAB PO PRN (17:39)
[2019-07-16 17:53] VITALS: BMI 20.6
[2019-07-16] MEDS: SENNOSIDES-DOCUSATE SODIUM 1 EACH TAB PO SCH (20:18)
[2019-07-17] MEDS: HYDROmorphone 1 MG/ML 1 ML SYRINGE IVP PRN ×4 (06:30→17:25)
--- NOTE | 2019-07-17 07:34 | P.PN ---
Progress Note - Text 07/17 650am 54-year-old female status post total knee replacement by Dr. Shi. Patient has an On-Q pump for postop pain control with the solution running at 8 mL an hour with a VAS of 6. Patient to continue On-Q pump infusion
[2019-07-17 07:56] LABS: Basophils # (A) 0.2 k/uL (0-0.2); Basophils % (A) 2 %; Eosinophils # (A) 0.1 k/uL (0-0.7); Eosinophils % (A) 1 %; HCT 29.2 % (34.0-46.0); Hypochromasia Slight; Lymphocytes # (A) 1.6 k/uL (1.0-4.8); Lymphocytes % (A) 15 %; MCH 30.4 pg (25.0-35.0); MCHC 31.3 g/dL (31.0-37.0); MCV 97.2 fL (80.0-100.0); Mean Platelet Volume 7.8; Monocytes # (A) 0.5 k/uL (0-1.0); Monocytes % (A) 4 %; Neutrophils # (A) 8.4 k/uL (1.3-7.7); Neutrophils % (A) 76 %; Platelet Count 580 k/uL (150-450); RDW 13.4 % (11.5-15.5)
[2019-07-17 07:59] LABS: HGB 9.1 gm/dL (11.4-16.0)
[2019-07-17] MEDS: MELOXICAM 7.5 MG TAB PO SCH (08:09)
[2019-07-17] MEDS: HYDROcodone/APAP 5-325MG 1 EACH TAB PO PRN (08:09)
[2019-07-17] MEDS: LACTATED RINGERS 1,000 ML IV SCH ×2 (08:10→21:25)
[2019-07-17] MEDS: ENOXAPARIN 30 MG/0.3 ML SYRINGE SQ SCH ×2 (08:11→20:47)
[2019-07-17] MEDS ORDERED: HYDROcodone/APAP 10-325MG 1 EACH TAB PO PRN (11:53)
--- NOTE | 2019-07-17 11:53 | P.PN ---
Subjective Progress Note Date: 07/17/19 Principal diagnosis: status post right total knee arthroplasty Patient evaluated at bedside today, she is resting comfortably. She does note some increase in pain throughout the night, she has a history of rheumatoid arthritis. Her pain control she feels is not adequate at this time. She has ambulated minimally at this time. Objective - Vital Signs Vital signs: Vital Signs Temp 99.5 F 07/17/19 07:00 Pulse 85 07/17/19 07:00 Resp 16 07/17/19 08:00 BP 117/76 07/17/19 07:00 Pulse Ox 97 07/17/19 07:00 Intake & Output 07/16/19 07/17/19 07/17/19 18:59 06:59 18:59 Intake Total 2050 95 Output Total 30 Balance 2020 95 Weight 46.266 kg Intake: IV 2050 Intake, IV Titration 600 Amount Lactated Ringers 1,000 ml 600 @ 50 mls/hr IV .Q20H [facility] Rx#:[id number] Oral 356 Output: Estimated Blood Loss 30 Other: Voiding Method Toilet Toilet # Voids 1 - Exam Right lower extremity: Optefoam in place, bloody drainage noted in the distal side of the bandage Ther e is minimal soft tissue swelling and ecchymosis surrounding the medial and lateral aspects of the incision. Calf is soft, no tenderness with palpation. Plantar flexion, dorsiflexion, EHL, FHL are intact. Sensory exam to light touch throughout the extremity is intact, dorsal pedis pulses 2+. - Labs CBC & Chem 7: 07/17/19 06:40 Labs: Abnormal Lab Results - Last 24 Hours (Table) 07/17/19 Range/Units 06:40 WBC 11.0 H (3.8-10.6) k/uL RBC 3.00 L (3.80-5.40) m/uL Hgb 9.1 L D (11.4-16.0) gm/dL Hct 29.2 L (34.0-46.0) % Plt Count 580 H (150-450) k/uL Neutrophils # 8.4 H (1.3-7.7) k/uL Assessment and Plan Plan: Assessment: Postoperative day #1 status post right total knee arthroplasty Plan: Pain control, continue use of current medication. Utilize IV medications needed GI and DVT prophylaxis, continue current medication Continue physical therapy Ice and elevate often Medical recommendations We'll make patient inpatient, plan for discharge home tomorrow Time with Patient: Less than 30
[2019-07-17] MEDS: MULTIVITAMINS, THERA 1 EACH TAB PO SCH (12:35)
[2019-07-17] MEDS: HYDROcodone/APAP 10-325MG 1 EACH TAB PO PRN ×2 (14:27→20:46)
--- NOTE | 2019-07-17 16:19 | P.CONS ---
History of Present Illness - Reason for Consult Consult date: 07/17/19 Medical management of anxiety, depression, fibromyalgia, rheumatoid arthrit Requesting physician: Bean Shi - Chief Complaint Symptomatic osteoarthritis right knee - History of Present Illness This is a 54-year-old female with history of fibromyalgia, rheumatoid arthritis, symptomatic osteoarthritis of right knee, anxiety, depression, marijuana use status post right total knee arthroplasty. Tolerated procedure fine. Complains of pain, pain management present with anesthesia evaluation pending this morning. Patient states she had been holding her rheumatoid arthritis medication regimen of Motrin prior to this procedure and requesting to resume. Minimal ambulation within room. Passing flatus, no bowel movement. Denies nausea or vomiting. Denies chest pain, palpitations or shortness of breath. Denies lightheadedness dizziness or focal deficits. T-max 99.5, WBC 11. Hemoglobin 9.1 platelets 580. Review of Systems ROS Statement: Those systems with pertinent positive or pertinent negative responses have been documented in the HPI. ROS Other: All systems not noted in ROS Statement are negative. Past Medical History Past Medical History: Fibromyalgia, Rheumatoid Arthritis (RA) Additional Past Medical History / Comment(s): hernia,steroids Jul 2019 History of Any Multi-Drug Resistant Organisms: None Reported Past Surgical History: Joint Replacement, Orthopedic Surgery Additional Past Surgical History / Comment(s): lt total hip replacement,left arthroscopy Past Anesthesia/Blood Transfusion Reactions: No Reported Reaction Additional Past Anesthesia/Blood Transfusion Reaction / Comm: anxious with surgeries Past Psychological History: Anxiety, Depression Smoking Status: Never smoker Past Alcohol Use History: Occasional Past Drug Use History: Marijuana Additional Drug Use History / Comment(s): uses marijuana approx 3 times per week. - Past Family History Mother Family Medical History: No Reported History Medications and Allergies Home Medications Medication Instructions Recorded Confirmed Type Hydrocodone/Acetaminophen [[place] 1 tab PO Q4H PRN 02/15/14 07/16/19 History 10-325] Ibuprofen [Motrin] 800 mg PO Q8HR PRN #20 tab 02/15/14 07/16/19 Rx Allergies Allergy/AdvReac Type Severity Reaction Status Date / Time No Known Allergies Allergy Verified 07/16/19 09:39 Physical Exam Vitals: Vital Signs Temp Pulse Pulse Resp BP Pulse Ox 07/17/19 08:00 16 07/17/19 07:00 99.5 F 85 16 117/76 97 10/15/19 03:25 99.5 F 90 126/77 97 07/16/19 20:17 98.1 F 86 15 106/65 95 07/16/19 16:45 98.4 F 57 L 18 105/70 92 L 07/16/19 15:00 77 16 85/59 97 07/16/19 14:00 79 14 96/69 97 07/16/19 13:34 76 16 112/69 98 07/16/19 13:15 74 14 108/71 98 07/16/19 13:00 74 18 99/69 99 07/16/19 12:45 82 16 98/65 99 07/16/19 12:26 98.0 F 96 16 110/70 96 Intake and Output 07/16/19 07/17/19 07/17/19 22:59 06:59 14:59 Intake Total 356 600 Balance 356 600 Intake: Intake, IV Titration 600 Amount Lactated Ringers 1,000 ml 600 @ 50 mls/hr IV .Q20H [facility] Rx#:[id number] Oral 356 Other: Voiding Method Toilet Toilet # Voids 1 1 PHYSICAL EXAM: VITAL SIGNS: As above GENERAL: Sitting up in bed, no acute distress HEENT: Conjunctivae normal. eyes normal. Oral mucosa moist NECK: No JVD. No thyroid enlargement. No LNs CARDIOVASCULAR: S1, S2 regular.. No murmur RESPIRATION: Breath sounds diminished in the bases. No rhonchi or crackles. No bronchial breathing. ABDOMEN: Soft, nontender . No guarding. no masses palpable. No ascites, No hepatosplenomegaly.Bowel sounds heard. LEGS: Right knee dressing mild distal shadowing , dry, intact, right lower extremity soft with minimal swelling, tender, positive DP pulse PSYCHIATRY: Alert and oriented X3, mood and affect normal. NERVOUS SYSTEM: Cranial N 2-12 grossly normal. Moves all 4 limbs. Diffuse weakness, No focal deficits. Strength and sensation grossly intact.. Skin: no rash no clubbing, no cyanosis, Results CBC & Chem 7: 07/17/19 06:40 Labs: Abnormal Lab Results - Last 24 Hours (Table) 07/17/19 Range/Units 06:40 WBC 11.0 H (3.8-10.6) k/uL RBC 3.00 L (3.80-5.40) m/uL Hgb 9.1 L D (11.4-16.0) gm/dL Hct 29.2 L (34.0-46.0) % Plt Count 580 H (150-450) k/uL Neutrophils # 8.4 H (1.3-7.7) k/uL Assessment and Plan Assessment: Symptomatic right knee osteoarthritis, status post right total knee arthroplasty -Rheumatoid arthritis -Fibromyalgia -Anxiety -Depression -Marijuana use -Mild fevers, suspect Atelectasis Plan: Continue on current medication regime ,monitoring and symptom it treatment. Aggressive pulmonary toileting with incentive spirometer reinforced. UA with culture ordered. Resume rheumatoid med regimen once cleared by orthopedic surgery. Pain management/anticoagulation as per orthopedic surgery. Ice/elevation recommended.PT/OT. Further recommendations to follow. Thank you Dr. Shi for the consult. The impression and plan of care has been dictated as directed. : I performed a history and examination of this patient, discussed the same with the dictator. I agree with the dictator's note ,documented as a scribe. Any additional findings or plans will be noted.
[2019-07-17] MEDS: PANTOPRAZOLE 40 MG/10 ML VIAL IVP SCH (17:30)
[2019-07-17] MEDS: SENNOSIDES-DOCUSATE SODIUM 1 EACH TAB PO SCH (20:47)
[2019-07-17 22:36] LABS: Appearance,Urine Clear (Clear); Bilirubin,Urine Negative (Negative); Blood,Urine Negative (Negative); Color,Urine Yellow; Glucose,Urine (UA) Negative (Negative); Ketones,Urine 1+ (Negative); Leukocyte Esterase,Urine Negative (Negative); Nitrite,Urine Negative (Negative); Protein,Urine Negative (Negative); Specific Gravity,Urine 1.014 (1.001-1.035); Urobilinogen,Urine <2.0 mg/dL (<2.0)
[2019-07-18] MEDS ORDERED: HYDROmorphone 1 MG/ML 1 ML SYRINGE ONE (00:45)
[2019-07-18 08:17] LABS: African American GFR (CKD) >90 (>60 ml/min/1.73 sqM); Anion Gap 10 mmol/L; Blood Urea Nitrogen 6 mg/dL (7-17); Calcium 8.7 mg/dL (8.4-10.2); Carbon Dioxide 21 mmol/L (22-30); Chloride 107 mmol/L (98-107); Glucose 59 mg/dL (74-99); Potassium 3.8 mmol/L (3.5-5.1); Sodium 138 mmol/L (137-145)
[2019-07-18 08:30] LABS: Basophils # (A) 0.1 k/uL (0-0.2); Basophils % (A) 1 %; Eosinophils # (A) 0.2 k/uL (0-0.7); Eosinophils % (A) 2 %; HCT 27.3 % (34.0-46.0); HGB 8.9 gm/dL (11.4-16.0); Hypochromasia Slight; Lymphocytes # (A) 2.1 k/uL (1.0-4.8); Lymphocytes % (A) 20 %; MCHC 32.5 g/dL (31.0-37.0); MCV 95.3 fL (80.0-100.0); Mean Platelet Volume 6.6; Monocytes # (A) 0.5 k/uL (0-1.0); Monocytes % (A) 5 %; Neutrophils # (A) 7.6 k/uL (1.3-7.7); Neutrophils % (A) 70 %; Platelet Count 627 k/uL (150-450); RBC 2.87 m/uL (3.80-5.40); RDW 13.1 % (11.5-15.5); WBC 10.9 k/uL (3.8-10.6)
[2019-07-18] MEDS: HYDROmorphone 1 MG/ML 1 ML SYRINGE IVP PRN (08:41)
[2019-07-18] MEDS: PANTOPRAZOLE 40 MG/10 ML VIAL IVP SCH (08:43)
[2019-07-18] MEDS: MELOXICAM 7.5 MG TAB PO SCH (08:46)
[2019-07-18] MEDS: ENOXAPARIN 30 MG/0.3 ML SYRINGE SQ SCH (08:47)
[2019-07-18] MEDS: HYDROcodone/APAP 10-325MG 1 EACH TAB PO PRN ×2 (09:49→15:23)
--- NOTE | 2019-07-18 11:25 | P.DS ---
Providers Date of admission: 07/16/2019 Expected date of discharge: 07/18/19 Attending physician: Bean Shi Consults: 07/16/19 12:27 Consult Physician Routine Consulting Provider: Jose Flores Reason/Comments: Medical management Do you want consulting provider notified?: Yes Primary care physician: Stated None Hospital Course: Date of admission: 07/16/2019 Date of discharge: 07/18/2019 Admission diagnosis: Status post right total knee arthroplasty Discharge diagnosis: Same Attending physician: Dr. Shi Surgical procedures: Right total knee arthroplasty Brief history: Patient is a 54-year-old female with a history of progressive primary right knee osteoarthritis. At this point patient has failed conservative treatment measures and has opted to proceed with a elective right total knee arthroplasty. Hospital course: Details of patient's surgery can be found in operative report. Patient tolerated the procedure well and was subsequently transported to orthopedic floor. Patient's orthopeidc and medical care was provided daily. Patient had daily laboratory tests performed for evaluation of overall blood counts. Patient had daily physical therapy to include strengthening range of motion as well as education with walker ambulation. Patient had daily CPM usage as part of their physical therapy program. Patient was treated with Lovenox for their postoperative DVT prophylaxis during their inpatient stay. Patient was noted to have a relatively uneventful postoperative course. Patient reported satisfactory pain control with oral pain medications by postoperative day 0. Patient showed satisfactory progress with physical therapy. Patient moved steadily through the program and had no difficulty meeting the goals by postoperative day 2. Given patient's otherwise satisfactory course and having met physical therapy goals, plan is to discharge patient home on postoperative day 2. Discharge condition/disposition: Patient will be discharged home in stable condition. Discharge medications: Instructions are given on resumption of patient's normal daily medications per primary care recommendation, in addition patient will be prescribed Colace 100 mg, Mobic 7.5 mg, Pepcid 20 mg, aspirin 81 mg. Discharge instructions: 1. Wound care and infection precautions, keep incision dry and covered while showering, no lotions, creams, moisturizers. No soaking, tubs, pools, hottubs. Do not scrub over the incision. 2. Weight-bear as tolerated with walker / cane until follow-up. 3. Ice and elevate when necessary. Do not exceed 20 minutes per hour with ice pack. 4. Utilize compression sleeve until seen at first follow up appointment. 5. Visiting nursing care. 6. Home physical therapy including home CPM. 7. Pain meds and anticoagulants per prescription. 8. Pain medication has potential to cause constipation. Increase oral fluid and fiber intake. Contact primary care provider if you have not had a bowel movement within 48 hours after discharge 9. No anti-inflammatory medication until discussed at first post operative visit, this including Motrin, Aleve, Mobic, Diclofenac 10. Follow up in office at 2 weeks postop with Magdy Chen PA-C 11. Follow up with your primary care doctor 7-10 days after discharge. 12. Contact [facility] with any questions, . Procedures: Right total knee arthroplasty Patient Condition at Discharge: Good Plan - Discharge Summary Discharge Rx Participant: Yes New Discharge Prescriptions: New Aspirin [Adult Low Dose Aspirin EC] 81 mg PO BID #60 tablet. Docusate [Colace] 100 mg PO DAILY #30 capsule Meloxicam [Mobic] 7.5 mg PO DAILY PRN #30 tab PRN Reason: Pain Famotidine [Pepcid] 20 mg PO DAILY #30 tablet Discontinued Ibuprofen [Motrin] 800 mg PO Q8HR PRN #20 tab PRN Reason: Pain No Action Hydrocodone/Acetaminophen [[place] 10-325] 1 tab PO Q4H PRN PRN Reason: Pain Discharge Medication List Hydrocodone/Acetaminophen [[place] 10-325] 1 tab PO Q4H PRN 02/15/14 [History] Aspirin [Adult Low Dose Aspirin EC] 81 mg PO BID #60 tablet. 07/18/19 [Rx] Docusate [Colace] 100 mg PO DAILY #30 capsule 07/18/19 [Rx] Famotidine [Pepcid] 20 mg PO DAILY #30 tablet 07/18/19 [Rx] Meloxicam [Mobic] 7.5 mg PO DAILY PRN #30 tab 07/18/19 [Rx] Follow up Appointment(s)/Referral(s): [facility]ipment [NON-STAFF] - As Needed (Continuous Passive Motion knee machine) [facility], [NON-STAFF] - As Needed Daniel Chen PAC [PHYSICIAN CHARGE OPERATOR] - 08/01/19 3:00 pm Activity/Diet/Wound Care/Special Instructions: Orthopedic Discharge Instructions: 1. Wound care and infection precautions, keep incision dry and covered while showering, no lotions, creams, moisturizers. No soaking, pools, hot tubs. Do not scrub over incision. 2. Weight-bear as tolerated with walker / cane until follow-up. 3. Ice and elevate when necessary. Do not exceed 20 minutes per hour with ice pack. 4. Utilize compression sleeve until seen at first follow up appointment. 5. Pain meds and anticoagulants per prescription. 6. Pain medication has potential to cause constipation. Increase oral fluid and fiber intake. Contact primary care provider if you have not had a bowel movement within 48 hours after discharge. 7. No anti-inflammatory medication until discussed at first post operative visit, this including Motrin, Aleve, Mobic, Diclofenac. 8. Follow up in office at 2 weeks postop with Magdy Chen PA-C 9. Follow up with your primary care doctor 7-10 days after discharge. 10. Contact [facility] with any questions, . Discharge Disposition: HOME WITH HOME HEALTH SERVICES
[2019-07-18] MEDS: MULTIVITAMINS, THERA 1 EACH TAB PO SCH (13:07)
[2019-07-18 15:04] VITALS: BP 110/78; PULSE 89; RESP 17; TEMP 98.9
== END 2019-07-18 16:18 | disposition home health service (06) | DRG 470 ==
LOC: OR 08:32 → 4SSUR 16:04 → OR 07-17 12:00 → 4SSUR 07-18 15:38
PROVIDERS: ADMIT Orthopaedic Surgery; ATTEND Orthopaedic Surgery
PROC: 0SRC0J9 Replacement of Right Knee Joint with Synthetic Substitute, Cemented, Open Approach (ICD-10-PCS; principal; 2019-07-16 10:00)
DX: M17.11 Unilateral primary osteoarthritis, right knee (principal); J98.11 Atelectasis; M06.9 Rheumatoid arthritis, unspecified; I10 Essential (primary) hypertension; Z96.642 Presence of left artificial hip joint; F32.9 Major depressive disorder, single episode, unspecified; F41.9 Anxiety disorder, unspecified; M79.7 Fibromyalgia; Z79.1 Long term (current) use of non-steroidal anti-inflammatories (NSAID); Z79.891 Long term (current) use of opiate analgesic; Z98.890 Other specified postprocedural states
CPT/HCPCS: 64448; 76942; 80048; 81003; 85025; 88300

== ENCOUNTER → 2019-11-21 | Outpatient (CLI) | payer MEDICARE, OTHER ==
--- NOTE | 2019-11-21 14:51 | XR ---
EXAMINATION TYPE: XR cervical spine w flex/ext DATE OF EXAM: 11/21/2019 COMPARISON: None HISTORY: Cervicalgia x3 months TECHNIQUE: Five-view cervical spine FINDINGS: There is severe bilateral foraminal narrowing at C6-7. There is loss of disc height C6-7 mi nimal posterior vertebral body spurring may be present C6-7. Vertebral body heights are preserved. An terior vertebral body spurring is present at C6. Posterior spinal lamellar line is intact. Flexion and extension views were obtained in the sagittal plane. Orientation of the vertebral bodies is preserved. Odontoid is limited due to nondiagnostic due to overlying occiput. IMPRESSION: 1. Degenerative disc changes with severe foraminal stenosis bilaterally C6-7.
== END | disposition home or self-care (01) ==
LOC: RADXRMAIN 14:13
PROVIDERS: ATTEND Internal Medicine Rheumatology
DX: M48.02 Spinal stenosis, cervical region (principal); M47.812 Spondylosis without myelopathy or radiculopathy, cervical region
CPT/HCPCS: 72052

== ENCOUNTER → 2019-12-17 | Outpatient (CLI) | payer MEDICARE, OTHER | END | disposition home or self-care (01) | CPT/HCPCS: 72141 ==

== ENCOUNTER → 2020-02-19 | Outpatient (CLI) | payer MEDICARE, OTHER ==
[2020-02-19 13:11] LABS: Basophils # (A) 0.1 k/uL (0-0.2); Basophils % (A) 1 %; Eosinophils # (A) 0.4 k/uL (0-0.7); Eosinophils % (A) 3 %; HCT 37.2 % (34.0-46.0); HGB 11.6 gm/dL (11.4-16.0); Lymphocytes # (A) 5.9 k/uL (1.0-4.8); Lymphocytes % (A) 47 %; MCH 31.4 pg (25.0-35.0); MCHC 31.1 g/dL (31.0-37.0); Macrocytosis Slight; Mean Platelet Volume 7.9; Monocytes # (A) 0.6 k/uL (0-1.0); Monocytes % (A) 5 %; Neutrophils # (A) 5.4 k/uL (1.3-7.7); Neutrophils % (A) 43 %; Platelet Count 260 k/uL (150-450); RBC 3.68 m/uL (3.80-5.40); RDW 14.1 % (11.5-15.5); WBC 12.7 k/uL (3.8-10.6)
[2020-02-19 14:56] LABS: Erythrocyte Sedimentation Rate 5 mm/hr (0-20)
[2020-02-19 15:11] LABS: Poikilocytosis (M) Present
[2020-02-19 19:00] LABS: ALT 10 U/L (8-44); AST 15 U/L (13-35); African American GFR (CKD) 117.3 (60.0-200.0); C Reactive Protein <0.4 mg/dL (0.0-0.8); Non-African American GFR(CKD) 101.2 (60.0-200.0)
[2020-02-19 19:37] LABS: Hepatitis B Surface Antigen Non-Reactive (Non-Reactive); Hepatitis C IgG Antibody Non-Reactive (Non-Reactive)
== END | disposition home or self-care (01) ==
LOC: LABWHC1 12:27
PROVIDERS: ATTEND Internal Medicine Rheumatology
DX: M06.9 Rheumatoid arthritis, unspecified (principal)
CPT/HCPCS: 36415; 82565; 84450; 84460; 85025; 85652; 86140; 86480; 86803; 87340

== ENCOUNTER → 2020-05-20 | Outpatient (CLI) | payer MEDICARE, OTHER ==
[2020-05-20 15:48] LABS: Basophils # (A) 0.1 k/uL (0-0.2); Basophils % (A) 1 %; Eosinophils # (A) 0.1 k/uL (0-0.7); Eosinophils % (A) 1 %; HCT 35.2 % (34.0-46.0); HGB 10.6 gm/dL (11.4-16.0); Hypochromasia Slight; Lymphocytes # (A) 2.1 k/uL (1.0-4.8); Lymphocytes % (A) 22 %; MCH 29.1 pg (25.0-35.0); MCHC 30.1 g/dL (31.0-37.0); MCV 96.7 fL (80.0-100.0); Mean Platelet Volume 7.4; Monocytes # (A) 0.4 k/uL (0-1.0); Monocytes % (A) 4 %; Neutrophils # (A) 6.6 k/uL (1.3-7.7); Neutrophils % (A) 70 %; Platelet Count 422 k/uL (150-450); RBC 3.64 m/uL (3.80-5.40); RDW 13.9 % (11.5-15.5); WBC 9.4 k/uL (3.8-10.6)
[2020-05-21 04:15] LABS: Erythrocyte Sedimentation Rate 67 mm/Hr (0-30)
[2020-05-21 12:33] LABS: African American GFR (CKD) 117.3 (60.0-200.0); C Reactive Protein 3.9 mg/dL (0.0-0.8); Non-African American GFR(CKD) 101.2 (60.0-200.0)
== END | disposition home or self-care (01) ==
LOC: LABWHC1 14:44
PROVIDERS: ATTEND Internal Medicine Rheumatology
DX: M06.9 Rheumatoid arthritis, unspecified (principal)
CPT/HCPCS: 36415; 82565; 84450; 84460; 85025; 85652; 86140

== ENCOUNTER → 2020-05-24 | Outpatient (CLI) | payer MEDICARE, OTHER ==
--- NOTE | 2020-05-24 11:40 | XR ---
EXAMINATION TYPE: XR foot complete LT DATE OF EXAM: 05/24/2020 CLINICAL HISTORY: pain TECHNIQUE: Frontal, lateral and oblique images of the left foot are obtained. COMPARISON: None. FINDINGS: There is no acute fracture/dislocation evident. Severe degenerative joint space narrowing involving the first metatarsal-phalangeal joint. Associated spur formation and soft tissue swelling. The overlying soft tissue appears unremarkable. IMPRESSION: There is no acute fracture or dislocation. ICD 10 NO FRACTURE, INITIAL EVALUATION
== END | disposition home or self-care (01) ==
LOC: RADXRMAIN 11:04
PROVIDERS: ATTEND Internal Medicine Rheumatology
DX: M79.672 Pain in left foot (principal)

== ENCOUNTER → 2020-09-02 | Outpatient (CLI) | payer MEDICARE, OTHER ==
[2020-09-02 15:54] LABS: Basophils # (A) 0.1 k/uL (0-0.2); Basophils % (A) 1 %; Eosinophils # (A) 0.2 k/uL (0-0.7); Eosinophils % (A) 3 %; HCT 39.9 % (34.0-46.0); HGB 12.7 gm/dL (11.4-16.0); Lymphocytes # (A) 3.8 k/uL (1.0-4.8); Lymphocytes % (A) 57 %; MCH 30.6 pg (25.0-35.0); MCHC 31.9 g/dL (31.0-37.0); MCV 95.9 fL (80.0-100.0); Mean Platelet Volume 8.8; Monocytes # (A) 0.4 k/uL (0-1.0); Monocytes % (A) 6 %; Neutrophils # (A) 2.1 k/uL (1.3-7.7); Neutrophils % (A) 31 %; Platelet Count 228 k/uL (150-450); RBC 4.16 m/uL (3.80-5.40); RDW 14.3 % (11.5-15.5); WBC 6.7 k/uL (3.8-10.6)
[2020-09-02 17:22] LABS: Erythrocyte Sedimentation Rate 8 mm/hr (0-20)
[2020-09-03 02:26] LABS: ALT 33 U/L (8-44); AST 30 U/L (13-35); African American GFR (CKD) 111.5 (60.0-200.0); C Reactive Protein <0.4 mg/dL (0.0-0.8); Non-African American GFR(CKD) 96.2 (60.0-200.0)
== END | disposition home or self-care (01) ==
LOC: LABWHC1 14:21
PROVIDERS: ATTEND Internal Medicine Rheumatology
DX: M06.9 Rheumatoid arthritis, unspecified (principal)
CPT/HCPCS: 36415; 82565; 84450; 84460; 85025; 85652; 86140

== ENCOUNTER → 2020-12-17 | Outpatient (CLI) | payer MEDICARE, OTHER ==
[2020-12-17 18:06] LABS: Basophils # (A) 0.14 X 10*3/uL (0.00-0.10); Basophils % (A) 1.6 %; Eosinophils # (A) 0.43 X 10*3/uL (0.04-0.35); Eosinophils % (A) 4.9 %; HCT 38.1 % (37.2-46.3); HGB 12.6 g/dL (12.0-15.0); Lymphocytes # (A) 4.29 X 10*3/uL (0.90-5.00); Lymphocytes % (A) 49.4 %; MCH 32.5 pg (27.0-32.0); MCHC 33.1 g/dL (32.0-37.0); MCV 98.2 fL (80.0-97.0); Mean Platelet Volume 11.9 fL (9.5-12.2); Monocytes # (A) 0.61 X 10*3/uL (0.20-1.00); Neutrophils # (A) 3.17 X 10*3/uL (1.80-7.70); Neutrophils % (A) 36.5 %; Platelet Count 269 X 10*3/uL (140-440); RBC 3.88 X 10*6/uL (4.10-5.20); RDW 13.5 % (11.5-14.5); WBC 8.69 X 10*3/uL (4.50-10.00)
[2020-12-17 20:25] LABS: Erythrocyte Sedimentation Rate 7 mm/Hr (0-30)
[2020-12-18 02:23] LABS: ALT 23 U/L (8-44); AST 20 U/L (13-35); African American GFR (CKD) 117.3 (60.0-200.0); C Reactive Protein <0.4 mg/dL (0.0-0.8); Non-African American GFR(CKD) 101.2 (60.0-200.0)
== END ==
LOC: LABWHC1 08:32
PROVIDERS: ATTEND Internal Medicine Rheumatology
DX: M06.9 Rheumatoid arthritis, unspecified (principal)
CPT/HCPCS: 36415; 82565; 84450; 84460; 85025; 85652; 86140

== ENCOUNTER → 2021-04-15 | Outpatient (CLI) | payer MEDICARE, OTHER ==
[2021-04-15 23:31] LABS: Basophils # (A) 0.15 X 10*3/uL (0.00-0.10); Basophils % (A) 1.3 %; Eosinophils # (A) 0.26 X 10*3/uL (0.04-0.35); Eosinophils % (A) 2.3 %; HGB 11.8 g/dL (12.0-15.0); Lymphocytes % (A) 11.5 %; MCH 32.2 pg (27.0-32.0); MCHC 32.8 g/dL (32.0-37.0); MCV 98.4 fL (80.0-97.0); Mean Platelet Volume 10.6 fL (9.5-12.2); Monocytes # (A) 0.54 X 10*3/uL (0.20-1.00); Monocytes % (A) 4.8 %; Neutrophils % (A) 79.5 %; Platelet Count 544 X 10*3/uL (140-440); RBC 3.66 X 10*6/uL (4.10-5.20); WBC 11.32 X 10*3/uL (4.50-10.00)
[2021-04-16 00:47] LABS: Erythrocyte Sedimentation Rate 67 mm/Hr (0-30)
[2021-04-16 12:50] LABS: African American GFR (CKD) 116.4 (60.0-200.0); C Reactive Protein 2.9 mg/dL (0.0-0.8); Non-African American GFR(CKD) 100.5 (60.0-200.0)
== END | disposition home or self-care (01) ==
LOC: LABWHC1 14:53
PROVIDERS: ATTEND Internal Medicine Rheumatology
DX: M06.9 Rheumatoid arthritis, unspecified (principal)
CPT/HCPCS: 36415; 82565; 84450; 84460; 85025; 85652; 86140

== ENCOUNTER → 2021-08-22 | Outpatient (CLI) | payer MEDICARE, OTHER ==
[2021-08-22 17:54] LABS: African American GFR (CKD) 119.9 (60.0-200.0); Non-African American GFR(CKD) 103.5 (60.0-200.0)
[2021-08-22 18:01] LABS: Basophils % (A) 0.9 %; Eosinophils % (A) 0.9 %; HCT 37.6 % (37.2-46.3); HGB 11.9 g/dL (12.0-15.0); Lymphocytes # (A) 1.78 X 10*3/uL (0.90-5.00); Lymphocytes % (A) 15.9 %; MCH 29.8 pg (27.0-32.0); MCHC 31.6 g/dL (32.0-37.0); MCV 94.2 fL (80.0-97.0); Mean Platelet Volume 10.3 fL (9.5-12.2); Monocytes # (A) 0.46 X 10*3/uL (0.20-1.00); Monocytes % (A) 4.1 %; Neutrophils # (A) 8.54 X 10*3/uL (1.80-7.70); Neutrophils % (A) 76.5 %; Platelet Count 475 X 10*3/uL (140-440); RBC 3.99 X 10*6/uL (4.10-5.20); RDW 14.6 % (11.5-14.5); WBC 11.17 X 10*3/uL (4.50-10.00)
[2021-08-22 19:33] LABS: Erythrocyte Sedimentation Rate 66 mm/Hr (0-30)
== END | disposition home or self-care (01) ==
LOC: LABWHC1 11:34
PROVIDERS: ATTEND Internal Medicine Rheumatology
DX: M06.9 Rheumatoid arthritis, unspecified (principal)
CPT/HCPCS: 36415; 82565; 82947; 84450; 84460; 85025; 85652; 86140; 86480

== ENCOUNTER → 2021-11-19 | Outpatient (CLI) | payer MEDICARE, OTHER ==
[2021-11-19 15:33] LABS: African American GFR (CKD) 110.7 (60.0-200.0); C Reactive Protein 2.4 mg/dL (0.00-0.80); Non-African American GFR(CKD) 95.5 (60.0-200.0)
[2021-11-19 15:37] LABS: Basophils # (A) 0.17 X 10*3/uL (0.00-0.10); Basophils % (A) 1.7 %; Eosinophils # (A) 0.81 X 10*3/uL (0.04-0.35); Eosinophils % (A) 8.1 %; HCT 37.3 % (37.2-46.3); HGB 11.7 g/dL (12.0-15.0); Immature Grans, Automated 1.3 %; Lymphocytes # (A) 4.64 X 10*3/uL (0.90-5.00); Lymphocytes % (A) 46.5 %; MCHC 31.4 g/dL (32.0-37.0); MCV 95.6 fL (80.0-97.0); Mean Platelet Volume 10.6 fL (9.5-12.2); NRBC Per 100 WBC 0 /100 WBCS (0.0-0.0); Neutrophils # (A) 3.42 X 10*3/uL (1.80-7.70); Neutrophils % (A) 34.4 %; Platelet Count 414 X 10*3/uL (140-440); WBC 9.97 X 10*3/uL (4.50-10.00)
[2021-11-19 18:17] LABS: Erythrocyte Sedimentation Rate 48 mm/Hr (0-30)
== END | disposition home or self-care (01) ==
LOC: LABWHC1 08:57
PROVIDERS: ATTEND Internal Medicine Rheumatology
DX: M06.9 Rheumatoid arthritis, unspecified (principal)
CPT/HCPCS: 36415; 82565; 84450; 84460; 85025; 85652; 86140

== ENCOUNTER 2022-02-11 09:18 | Emergency (ER) | payer OTHER, MEDICARE ==
[2022-02-11 09:29] VITALS: TEMP 98.1
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
[2022-02-11] MEDS ORDERED: LORazepam 1 MG TAB PO STA (09:42)
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
[2022-02-11 10:34] LABS: Basophils # (A) 0.1 k/uL (0-0.2); Basophils % (A) 0 %; Eosinophils # (A) 0.4 k/uL (0-0.7); Eosinophils % (A) 3 %; HCT 42.1 % (34.0-46.0); HGB 13.5 gm/dL (11.4-16.0); Lymphocytes # (A) 3.9 k/uL (1.0-4.8); Lymphocytes % (A) 27 %; MCH 30.8 pg (25.0-35.0); MCV 96.5 fL (80.0-100.0); Mean Platelet Volume 7.7; Monocytes # (A) 0.5 k/uL (0-1.0); Monocytes % (A) 3 %; Neutrophils # (A) 9.3 k/uL (1.3-7.7); Neutrophils % (A) 64 %; Platelet Count 398 k/uL (150-450); RBC 4.37 m/uL (3.80-5.40); RDW 14.8 % (11.5-15.5); WBC 14.4 k/uL (3.8-10.6)
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
[2022-02-11 10:44] LABS: ALT 27 U/L (4-34); AST 27 U/L (14-36); African American GFR (CKD) >90 (>60 ml/min/1.73 sqM); Albumin 4.3 g/dL (3.5-5.0); Alcohol <10 mg/dL; Alkaline Phosphatase 106 U/L (38-126); Anion Gap 10 mmol/L; Blood Urea Nitrogen 13 mg/dL (7-17); Calcium 9.3 mg/dL (8.4-10.2); Carbon Dioxide 22 mmol/L (22-30); Chloride 111 mmol/L (98-107); Glucose 87 mg/dL (74-99); Non-African American GFR(CKD) >90 (>60 ml/min/1.73 sqM); Potassium 4.1 mmol/L (3.5-5.1); Sodium 143 mmol/L (137-145); Total Bilirubin 0.8 mg/dL (0.2-1.3); Total Protein 8.1 g/dL (6.3-8.2)
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
[2022-02-11 11:40] VITALS: BP 124/78; PULSE 72; RESP 18
== END 2022-02-11 11:40 | disposition home or self-care (01) ==
LOC: EC 09:18
DX: M06.9 Rheumatoid arthritis, unspecified (principal); V89.2XXA Person injured in unspecified motor-vehicle accident, traffic, initial encounter
CPT/HCPCS: 36415; 71046; 72020; 72070; 72170; 80053; 80320; 85025

== ENCOUNTER → 2022-02-16 | Outpatient (CLI) | payer MEDICARE, OTHER ==
[~2022-02-16] MED LIST changes: +ACETAMINOPHEN TAB 325 MG TAB PO NR; +INFLIXIMAB-DYYB 300 MG in SODIUM CHLORIDE 0.9% 220 ML IV NR; -LIDOCAINE 1% 20 ML VIAL (10MG/ML) FOR IV START INTRADERMA PRN; -MIDAZOLAM 2 MG/2 ML VIAL IV PRN; -ONDANSETRON 4 MG/2 ML VIAL IVP PRN; -ROPIVACAINE 246.25 MG, EPINEPHrine 0.5 MG, KETOROLAC 30 MG, cloNIDine HCL/PF 80 MCG, WA... MISCELLANE ONE; +SODIUM CHLORIDE 0.9% 500 ML 500 ML in EMPTY BAG 1 BAG IV PRN; -TRANEXAMIC ACID 1,000 MG in SODIUM CHLORIDE 0.9% 100 ML IVPB ONE; +diphenhydrAMINE 50 MG/ML 1 ML VIAL IVP NR
[2022-02-16 10:56] VITALS: RESP 16; TEMP 97.8
[2022-02-16 11:55] VITALS: BP 103/70; PULSE 76
== END ==
LOC: PROCWHC3 10:40
PROVIDERS: ATTEND Internal Medicine Rheumatology
DX: M06.9 Rheumatoid arthritis, unspecified (principal)
CPT/HCPCS: 96413; 96415; Q5103

== ENCOUNTER → 2022-03-10 | Outpatient (CLI) | payer MEDICARE, OTHER ==
[2022-03-10 14:51] LABS: Basophils # (A) 0.11 X 10*3/uL (0.00-0.10); Basophils % (A) 1.5 %; Eosinophils # (A) 0.49 X 10*3/uL (0.04-0.35); Eosinophils % (A) 6.6 %; HGB 11.8 g/dL (12.0-15.0); Immature Grans, Automated 0.5 %; Lymphocytes # (A) 2.96 X 10*3/uL (0.90-5.00); Lymphocytes % (A) 39.6 %; MCH 29.9 pg (27.0-32.0); MCHC 31.1 g/dL (32.0-37.0); MCV 96.4 fL (80.0-97.0); Mean Platelet Volume 10.6 fL (9.5-12.2); Monocytes # (A) 0.93 X 10*3/uL (0.20-1.00); Monocytes % (A) 12.4 %; NRBC Per 100 WBC 0 /100 WBCS (0.0-0.0); Neutrophils # (A) 2.94 X 10*3/uL (1.80-7.70); Neutrophils % (A) 39.4 %; Platelet Count 408 X 10*3/uL (140-440); RBC 3.94 X 10*6/uL (4.10-5.20); WBC 7.47 X 10*3/uL (4.50-10.00)
[2022-03-10 15:27] LABS: African American GFR (CKD) 110.8 (60.0-200.0); Non-African American GFR(CKD) 95.6 (60.0-200.0)
[2022-03-10 16:09] LABS: Erythrocyte Sedimentation Rate 33 mm/Hr (0-30)
== END | disposition home or self-care (01) ==
LOC: LABWHC1 08:57
PROVIDERS: ATTEND Internal Medicine Rheumatology
DX: M06.9 Rheumatoid arthritis, unspecified (principal)
CPT/HCPCS: 36415; 82565; 84450; 84460; 85025; 85652; 86140

== ENCOUNTER → 2022-06-10 | Outpatient (CLI) | payer MEDICARE, OTHER ==
[2022-06-10 08:27] VITALS: RESP 16; TEMP 97.8
[2022-06-10 10:10] VITALS: BP 96/62; PULSE 73
== END ==
LOC: PROCWHC3 08:14
PROVIDERS: ATTEND Internal Medicine Rheumatology
DX: M06.9 Rheumatoid arthritis, unspecified (principal)
CPT/HCPCS: 96413; 96415; Q5103

== ENCOUNTER → 2022-08-06 | Outpatient (CLI) | payer MEDICARE, OTHER ==
[2022-08-06 08:53] VITALS: RESP 15; TEMP 97.8
[2022-08-06 10:12] VITALS: BP 98/64; PULSE 73
== END ==
LOC: PROCWHC3 08:37
PROVIDERS: ATTEND Internal Medicine Rheumatology
DX: M06.9 Rheumatoid arthritis, unspecified (principal)
CPT/HCPCS: 96413; 96415; Q5103

== ENCOUNTER → 2022-09-17 | Outpatient (CLI) | payer MEDICARE, OTHER ==
[2022-09-17 08:48] VITALS: RESP 16; TEMP 97.6
[2022-09-17 10:21] VITALS: BP 99/66; PULSE 78
== END ==
LOC: PROCWHC3 08:38
PROVIDERS: ATTEND Internal Medicine Rheumatology
DX: M06.9 Rheumatoid arthritis, unspecified (principal)
CPT/HCPCS: 96413; 96415; Q5103

== ENCOUNTER → 2022-10-29 | Outpatient (CLI) | payer MEDICARE, OTHER ==
[2022-10-29 10:27] VITALS: TEMP 97.9
[2022-10-29 11:12] VITALS: PULSE 97; RESP 16
[2022-10-29 12:01] VITALS: BP 98/44
== END ==
LOC: PROCWHC3 10:17
PROVIDERS: ATTEND Internal Medicine Rheumatology
DX: M06.9 Rheumatoid arthritis, unspecified (principal)
CPT/HCPCS: 96413; 96415; Q5103

== ENCOUNTER → 2022-12-27 | Outpatient (CLI) | payer MEDICARE, OTHER ==
[2022-12-27 10:35] VITALS: RESP 16; TEMP 98.7
[2022-12-27 12:01] VITALS: BP 96/60; PULSE 80
== END ==
LOC: PROCWHC3 10:16
PROVIDERS: ATTEND Internal Medicine Rheumatology
DX: M06.9 Rheumatoid arthritis, unspecified (principal)
CPT/HCPCS: 96365; 96366; Q5103

== ENCOUNTER → 2023-03-08 | Outpatient (CLI) | payer MEDICARE, OTHER ==
[2023-03-08 10:45] VITALS: RESP 16; TEMP 98.2
[2023-03-08 12:26] VITALS: BP 109/57; PULSE 70
== END ==
LOC: PROCWHC3 10:39
PROVIDERS: ATTEND Internal Medicine Rheumatology
DX: M06.9 Rheumatoid arthritis, unspecified (principal)
CPT/HCPCS: 96413; 96415; Q5103

== ENCOUNTER → 2023-07-18 | Outpatient (CLI) | payer MEDICARE, OTHER ==
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
== END | disposition home or self-care (01) ==
LOC: RADMRIMAIN 20:00
PROVIDERS: ATTEND Family Medicine
DX: S22.000A Wedge compression fracture of unspecified thoracic vertebra, initial encounter for closed fracture (principal); M47.814 Spondylosis without myelopathy or radiculopathy, thoracic region; M99.72 Connective tissue and disc stenosis of intervertebral foramina of thoracic region
CPT/HCPCS: 72146

== ENCOUNTER → 2023-09-09 | Outpatient (CLI) | payer MEDICARE, OTHER ==
--- NOTE | 2023-09-12 08:07 | MR ---
EXAMINATION TYPE: MR cervical spine wo/w con DATE OF EXAM: 09/09/2023 7:20 PM CLINICAL INDICATION:Female, 58 years old with history of R93.7 ABNORMAL FINDINGS ON DIAGNOSTIC IMAGIN G OF P; PHH, Neck pain, right hand numbness. History of stroke. Abnormal prior COMPARISON: . TECHNIQUE: Multi planar, multi sequence imaging was performed utilizing: T1-weighted, T2-weighted, an d turbo inversion recovery imaging of the cervical spine. IV Contrast: 5.5 cc Gadavist (none if empty) FINDINGS: Alignment: The cervical vertebral bodies have preserved heights. Alignment is within normal limits gi becca patient positioning. Bones: Bone signal is within normal limits. No abnormal bone marrow edema on inversion recovery seque nces. Cord: The medial lesion of high cord signal at the C1/C2 level measuring up to 16 mm in caudocranial dimension is predominantly in the right series 801 image 51. A small focus within the left spinal cor d which is subtle measuring 2 mm image 27 at the level of C5, at the level of C3 posteriorly measurin g 1 mm image 43, the level of C6 on the right measuring 1 mm image 15. These are all stable from prio r. There is postcontrast enhancement of the area at the level of C1-C2. Series 1101 image 50. The cord i s not definitively is pending at this level and is grossly similar in size to prior. Discs: Multilevel disc desiccation is present. C2-C3: No significant disc pathology. The spinal canal is patent. No neural foraminal stenosis. C3-C4: No significant disc pathology. The spinal canal is patent. No neural foraminal stenosis. C4-C5: A disc osteophyte complex is present with mild spinal canal stenosis. Bilateral facet and unc overtebral joint arthropathy are present with mild bilateral neural foraminal stenosis. C5-C6: No significant disc pathology. The spinal canal is patent. Bilateral facet and uncovertebral joint arthropathy are present with moderate right and mild left foraminal stenosis. C6-C7: No significant disc pathology. The spinal canal is patent. Bilateral facet and uncovertebral joint arthropathy are present with moderate to severe bilateral bilateral neural foraminal stenosis. C7-T1: No significant disc pathology. The spinal canal is patent. Bilateral facet and uncovertebral joint arthropathy are present with moderate bilateral neural foraminal stenosis. Other: None. IMPRESSION: 1. Postcontrast enhancement within the C1/C2 spinal cord in the area of prior high signal present on 07/12/2023. Which is not on similar to 07/12/2023. Differential diagnoses remains but not limited to mass or persistent active demyelination plaque 2. No evidence for disc herniation or significant spinal canal stenosis. 3. Mild to moderate disc degeneration with associated osteoarthritic changes worse at C6-C7 with mod erate to severe bilateral and moderate bilateral C7-T1 and moderate right C5-C6 neural foraminal sten osis.
== END | disposition home or self-care (01) ==
LOC: RADMRIMAIN 18:19
PROVIDERS: ATTEND Neurological Surgery
DX: M48.02 Spinal stenosis, cervical region (principal); M50.322 Other cervical disc degeneration at C5-C6 level
CPT/HCPCS: 72156; A9585